=== PATIENT | male | born 1990 | race Caucasian/White ===

== ENCOUNTER 2021-07-25 14:03 | Emergency (ER) | payer BC, OTHER ==
[2021-07-25] MEDS ORDERED: Lidocaine 1% 10 ML MDV INJECT ONE (15:01)
[2021-07-25] MEDS ORDERED: Diphtheria,Pertussis(Acell),Tetanus Vaccine 0.5 ML Syringe IM ONE (15:01)
== END 2021-07-25 16:05 | disposition home or self-care (01) ==
LOC: JD.ED 14:03
DX: S61.411A Laceration without foreign body of right hand, initial encounter (principal); Z23 Encounter for immunization; W26.8XXA Contact with other sharp object(s), not elsewhere classified, initial encounter
CPT/HCPCS: 12002; 90471; 90715; 99282-25; 99283